=== PATIENT | female | born 1990 | race Caucasian/White ===

== ENCOUNTER 2018-05-11 12:22 | Outpatient (CLI) | payer OTHER ==
[2018-05-11 14:12] LABS: APPEARANCE,URINE CLEAR; BILIRUBIN,URINE NEGATIVE (NEGATIVE); COLOR,URINE COLORLESS; GLUCOSE, URINE NEGATIVE (NEGATIVE); KETONES,URINE NEGATIVE (NEGATIVE); LEUKOCYTE ESTERASE,URINE NEGATIVE (NEGATIVE); NITRITE,URINE NEGATIVE (NEGATIVE); PROTEIN,URINE NEGATIVE (NEGATIVE); URINE SPECIFIC GRAVITY 1.003; UROBILINOGEN,URINE NEGATIVE mg/dL (<2.0)
[2018-05-11 14:27] LABS: URINE AMPHETAMINES SCREEN NEGATIVE; URINE BARBITURATES SCREEN NEGATIVE; URINE BENZODIAZEPINES SCREEN NEGATIVE; URINE COCAINE SCREEN NEGATIVE; URINE MARIJUANA (THC) SCREEN NEGATIVE; URINE METHADONE SCREEN NEGATIVE; URINE PHENCYCLIDINE SCREEN NEGATIVE
== END 2018-05-11 14:24 | disposition home or self-care (01) ==
LOC: LC 12:22
PROVIDERS: ATTEND Obstetrics & Gynecology Gynecology
PROC: 4A1HXCZ Monitoring of Products of Conception, Cardiac Rate, External Approach (ICD-10-PCS; principal; 2018-05-11)
DX: O99.713 Diseases of the skin and subcutaneous tissue complicating pregnancy, third trimester (principal); L50.9 Urticaria, unspecified; Z3A.31 31 weeks gestation of pregnancy
CPT/HCPCS: 80307; 81001

== ENCOUNTER 2018-06-26 12:26 | Outpatient (CLI) | payer OTHER ==
--- NOTE | 2018-06-26 13:39 | Non Stress Test Report ---
Non Stress Test Datetime Report Generated by CPN: 06/26/2018 13:38 DEMOGRAPHIC EGA NST: 38.3 INDICATION Indication for Study: Ordered by Provider MONITORING Monitor Explained: Monitor Explained; Test Explained; Patient Verbalized Understanding Time on Monitor: 06/26/2018 12:44 Time off Monitor: 06/26/2018 13:33 NST Duration: 49 NST INTERVENTIONS NST Interventions: PO Hydration Physician Notified NST: POsiel Alfonso, CNM reveiwed strip BABY A: [id number] BABY A Movement : Present Contraction Frequency : irregular FHR Baseline : 150 Accelerations : 15X15 Decelerations : None Variability : Moderate 6-25bpm NST Review: Meets Criteria for Reactive NST NST Review and Verified By : LONG Stephenson Results: Reactive NST REPORT Report Trigger: Send Report
== END 2018-06-26 13:37 | disposition home or self-care (01) ==
LOC: LC 12:26
PROVIDERS: ATTEND Student in an Organized Health Care Education/Training Program
PROC: 4A1HXCZ Monitoring of Products of Conception, Cardiac Rate, External Approach (ICD-10-PCS; principal; 2018-06-26)
DX: O47.1 False labor at or after 37 completed weeks of gestation (principal); Z3A.38 38 weeks gestation of pregnancy
CPT/HCPCS: 59025

== ENCOUNTER 2018-07-01 21:35 | Inpatient (IN) | payer OTHER ==
[2018-07-01 22:04] LABS: APPEARANCE,URINE CLEAR; BILIRUBIN,URINE NEGATIVE (NEGATIVE); COLOR,URINE STRAW; GLUCOSE, URINE NEGATIVE (NEGATIVE); KETONES,URINE NEGATIVE (NEGATIVE); LEUKOCYTE ESTERASE,URINE NEGATIVE (NEGATIVE); NITRITE,URINE NEGATIVE (NEGATIVE); PROTEIN,URINE NEGATIVE (NEGATIVE); UROBILINOGEN,URINE NEGATIVE mg/dL (<2.0)
[2018-07-01 22:28] LABS: URINE AMPHETAMINES SCREEN NEGATIVE; URINE BARBITURATES SCREEN NEGATIVE; URINE BENZODIAZEPINES SCREEN NEGATIVE; URINE COCAINE SCREEN NEGATIVE; URINE MARIJUANA (THC) SCREEN NEGATIVE; URINE METHADONE SCREEN NEGATIVE; URINE PHENCYCLIDINE SCREEN NEGATIVE
[2018-07-01] MEDS ORDERED: DINOPROSTONE 10 MG VAGINAL INSERT.SR PV PRN (22:58)
[2018-07-01] MEDS ORDERED: RINGERS SOLUTION,LACTATED 300 ML IV ONE (22:58)
[2018-07-01] MEDS ORDERED: RINGERS SOLUTION,LACTATED 1,000 ML IV PRN (22:58)
--- NOTE | 2018-07-01 23:21 | RADIOLOGY REPORT (SQ) ---
EXAM DESCRIPTION: US LIMITED COMPLETED DATE/TME: 07/01/2018 00:00 CLINICAL HISTORY: 27 years, Female, presentation for unstable lie. LMP 09/30/2017. COMPARISON: 03/24/2018 TECHNIQUE: Limited third trimester obstetrical ultrasound for specified parameters. FINDINGS/IMPRESSION: Single live intrauterine . heart rate 141 bpm. position: Vertex 2010 [facility] [employer] [facility] [employer]- All Rights Reserved
[2018-07-01] MEDS ORDERED: MISOPROSTOL 0.2 MG TABLET ONE (23:23)
[2018-07-01] MEDS ORDERED: LIDOCAINE 1% INJ-PF (10 MG/ML) 30 ML SDV ONE (23:23)
[2018-07-01] MEDS ORDERED: OXYTOCIN/NORMAL SALINE 20 UNIT/1,000 ML RTUINJ ONE (23:23)
[2018-07-01] MEDS ORDERED: OXYTOCIN 10 UNIT/ML VIAL ONE (23:23)
[2018-07-01] MEDS ORDERED: DINOPROSTONE 10 MG VAGINAL INSERT.SR ONE (23:23)
[2018-07-01 23:49] LABS: ABSOLUTE EOSINOPHILS # (AUTO) 0.2 10^3/uL (0.0-0.6); ABSOLUTE LYMPHOCYTES (AUTO) 1.4 10^3/uL (0.5-4.7); ABSOLUTE MONOCYTES (AUTO) 0.4 10^3/uL (0.1-1.4); ABSOLUTE NEUT (AUTO) 4.8 10^3/uL (1.7-8.2); BASOPHILS % (AUTO) 0.4 % (0-2); EOSINOPHILS % (AUTO) 2.3 % (0-6); HEMATOCRIT 36.5 % (36.0-47.0); HEMOGLOBIN 12.8 g/dL (12.0-15.5); LYMPHOCYTES % (AUTO) 21.2 % (13-45); MEAN CORPUSCULAR HEMOGLOBIN 32.5 pg (27.0-33.4); MEAN CORPUSCULAR VOLUME 93 fl (80-97); MONOCYTES % (AUTO) 5.3 % (3-13); PLATELET COUNT 229 10^3/uL (150-450); RED BLOOD COUNT 3.94 10^6/uL (3.72-5.28); RED CELL DISTRIBUTION WIDTH 13.4 % (11.5-14.0); SEGMENTED NEUTROPHILS % (AUTO) 70.8 % (42-78); TOTAL CELLS COUNTED % (AUTO) 100 %; WHITE BLOOD COUNT 6.7 10^3/uL (4.0-10.5)
[2018-07-01 23:56] LABS: ALANINE AMINOTRANSFERASE 28 U/L (9-52); ALBUMIN 3.2 g/dL (3.5-5.0); ALKALINE PHOSPHATASE 157 U/L (38-126); ANION GAP 7 (5-19); ASPARTATE AMINO TRANSFERASE 29 U/L (14-36); BILIRUBIN,DIRECT 0.2 mg/dL (0.0-0.4); BILIRUBIN,TOTAL 0.3 mg/dL (0.2-1.3); BLOOD UREA NITROGEN 9 mg/dL (7-20); CALCIUM 9.4 mg/dL (8.4-10.2); CARBON DIOXIDE 23 mmol/L (22-30); CHLORIDE 107 mmol/L (98-107); GLUCOSE 94 mg/dL (75-110); POTASSIUM 4.1 mmol/L (3.6-5.0); SODIUM 137.1 mmol/L (137-145)
--- NOTE | 2018-07-02 05:26 | Admission Physical ---
Datetime Report Generated by CPN: 07/02/2018 05:26 CURRENT ADMISSION Chief Complaint: Scheduled Induction of Labor Indication for Induction: Other Indication for Induction- Other: Elective Admit Impression : Term, Intrauterine ; Induction of Labor Admit Plan: Admit to Unit; Initiate Labor Induction Protocol ALLERGIES Medication Allergies: Yes Medication Allergies: Sulfa (Sulfonamide Antibiotics)/Urticaria (07/01/2018) Latex: No Latex Allergies Food Allergies: N/A Environmental Allergies: Seasonal OBSTETRICAL HISTORY EDC: 07/07/2018 00:00 : 5 Para: 2 Term: 2 : 0 SAB: 1 IAB: 1 Ectopic: 0 Livin Cesareans: 0 VBACs: 0 Multiple Births: 0 Gestational Diabetes: No Rh Sensitization: No Incompetent Cervix: No DAVID: No Infertility: No ART Treatment: No Uterine Anomaly: No IUGR: No Hx Previous C/S: No Macrosomia: No Hx Loss/Stillborn: No PIH: No Hx : No Placenta Previa/Abruption: No Depression/PP Depression: No PTL/PROM: No Post Hemorrhage: No Current Procedures: Ultrasound; NST Obstetrical History Comments: G1- early miscarriage (2011) G2- early miscarriage/chemical (2011) G3 - PIH, of baby girl at 37.5 G4 - HTN, of baby girl at 41.4 G5- current, subchorionic hemmorrhage at 6 weeks. SEE RECORDS Alcohol: No Marijuana : No Cocaine: No Other Illicit Drugs: No Cigarettes: Never Smoker. [id number] MEDICAL HISTORY Diabetes: No Blood Transfusion: No Pulmonary Disease (Asthma, TB): Yes Breast Disease: No Hypertension: No Bundle Breaker Surgery: No Heart Disease: Yes Hosp/Surgery: Yes Autoimmune Disorder: No Anesthetic Complications: No Kidney Disease: No Abnormal Pap Smear: No Neuro/Epilepsy: No Psychiatric Disorders: No Other Medical Diseases: No Hepatitis/Liver Disease: No Significant Family History: No Varicosities/Phlebitis: No Trauma/Violence : No Thyroid Dysfunction: No Medical History Comments: Cogenital heart defect - bicuspid aortic valve, childbirth (2012 _ 2014), tonsilectomy (2005), breast augmentation (2010), wisdom teeth removal (2009), asthma (allergy induced) INFECTIOUS HISTORY Gonorrhea: No Genital Herpes: No Chlamydia: No Tuberculosis: No Syphilis: No Hepatitis: No HIV/AIDS Exposure: No Rash or Viral Illness: No HPV: No PHYSICAL EXAM General: Normal HEENT: Normal Neurologic: Normal Thyroid: Normal Heart: Normal Lungs: Normal Breast: Deferred Back: Normal Abdomen: Normal Genitourinary Exam: Normal Extremities: Normal DTRs: Normal Pelvic Type: Adequate Vital Signs: Reviewed VAGINAL EXAM Dilatation: 2 Effacement: 50 Station: -3 MEMBRANES Pooling: Negative Membranes: Intact FETUS A EGA: 39.2 Monitoring: External US FHR- Baseline: 120 Variability: Moderate 6-25bpm Decelerations: None FHR Category: Category I Presentation: Vertex PLANS FOR LABOR AND DELIVERY Labor and Delivery: None Pain Management: Natural; Epidural Feeding Preference: Breast Benefit of Breast Feed Discussed: Yes Circumcision: Yes INFORMED CONSENT Signature: with User ID: [email or web address]
[2018-07-02] MEDS ORDERED: OXYTOCIN/NORMAL SALINE 20 UNIT/1,000 ML RTUINJ IV PRN ×2 (11:05→17:27)
--- NOTE | 2018-07-02 11:05 | L&D Progress Notes ---
PROGRESS NOTES Datetime Report Generated by CPN: 07/02/2018 11:05 PROGRESS NOTE Impression Other: IUP @ [id number] Procedures: Sterile Vag Exam Plan: Continue Present Management Informed Consent Obtained: Vaginal Delivery; Induction of Labor; Risks, Benefits and Alternatives Discussed Vital Signs : Reviewed Vital Signs Comments: mild range(several elevated diastolic readings since admission) Comment: S: pt. breathing and crying with contractions, plans on epidural for pain at some point, denies concerns at this time O: VSS (with some diastolic elevations), cervix as stated, cervidil in place A: IUP @ 39w2d- IOL for unstable lie and GHTN, stable, progressing P: continue IOL, cervidil removed, will start pitocin after the 1hr break. Pt. and asked questions and verbalized understanding. Epidural prn VAGINAL EXAM Dilatation: 4 Dilatation: 2 Effacement: 80 Effacement: 50 Station: -2 Station: -3 Contractions: 2-3 MEMBRANES Pooling: Negative Membranes: Intact Membranes: Intact Amniotic Fluid Color: Clear FETUS A FHR - Baseline: 140 Monitoring: External US Variability: Moderate 6-25bpm Accelerations: 15X15 Decelerations: Variable : 39.0 Presentation: Vertex SIGNATURE SIGNATURE: [id number];[id number];13,[id number] SIGNATURE: [id number];[id number] SIGNATURE: [id number] Assignment: Halima Horta MD Signature: with User ID: Lorin : with User ID: Lorin
[2018-07-02] MEDS ORDERED: FENTANYL/BUPIVACAINE/NS/PF 300 MCG/150 ML RTUINJ EPI ONE (11:22)
[2018-07-02] MEDS ORDERED: EPHEDRINE SULFATE INJ 50 MG/1 ML AMPULE ONE (11:22)
[2018-07-02] MEDS ORDERED: LIDOCAINE 0.5% INJ-PF (5 MG/ML) 50 ML SDV ONE (11:23)
[2018-07-02] MEDS ORDERED: BUPIVACAINE HCL 0.5 % INJ/PF 30 ML SDV ONE (12:17)
--- NOTE | 2018-07-02 14:44 | L&D Progress Notes ---
PROGRESS NOTES Datetime Report Generated by CPN: 07/02/2018 14:43 PROGRESS NOTE Impression: Rupture of Membranes Procedures: Artificial ROM; Sterile Vag Exam Plan: Continue Present Management Informed Consent Obtained: Vaginal Delivery; Induction of Labor; Risks, Benefits and Alternatives Discussed Vital Signs : Reviewed Vital Signs Comments: continues to have occasional elevation c/w GHTN Comment: S: Pt. reports complete relief of pain with epidural placement just feeling a lot of perineal and back pressure now O: mild elevations in BP, cervix as stated A: IUP @ 39w2d- IOL secondary to unstable lie, GHTN-stable, progressing P: cervix continued changing without need for pitocin, AROM-clear fluid, continue present management, pitocin prn, peanut ball for rotation (baby in OT position at this time) VAGINAL EXAM Dilatation: 6 Effacement: 100 Station: -1 Contractions: 2-3 MEMBRANES Membranes: Ruptured Amniotic Fluid Color: Clear FETUS A Monitoring: External US FHR Category: Category I FETUS C SIGNATURE: [id number];[id number];10,[id number] Assignment: Halima Horta MD Signature: with User ID: Lorin : with User ID: [email or web address]
[2018-07-02] MEDS ORDERED: MEASLES,MUMPS&RUBELLA VACC/PF 0.5 ML VIAL SUBCUT PRN (17:27)
[2018-07-02] MEDS ORDERED: BENZOCAINE/MENTHOL AEROSOL SPRAY 56 ML TOP PRN (17:27)
[2018-07-02] MEDS ORDERED: PROMETHAZINE HCL 25 MG SUPP.RECT PR PRN (17:27)
[2018-07-02] MEDS ORDERED: PROMETHAZINE HCL 25 MG TABLET PO PRN (17:27)
[2018-07-02] MEDS ORDERED: PROMETHAZINE HCL INJ 25 MG/1 ML VIAL IV PRN (17:27)
[2018-07-02] MEDS ORDERED: NA PHOS,M-B/NA PHOS,DI-BA (ADULT) 133 ML ENEMA PR PRN (17:27)
[2018-07-02] MEDS ORDERED: ACETAMINOPHEN WITH CODEINE #3 TABLET PO PRN ×2 (17:27)
[2018-07-02] MEDS ORDERED: GLYCERIN/WITCH HAZEL LEAF 1 EACH MED..PAD TP PRN (17:27)
[2018-07-02] MEDS ORDERED: PSEUDOEPHEDRINE HCL 30 MG TABLET PO PRN (17:27)
[2018-07-02] MEDS ORDERED: DIBUCAINE 1% OINTMENT 28 GM TP PRN (17:27)
[2018-07-02] MEDS ORDERED: DIPH/PERTUSS(ACELL)/TETANUS VAC/PF 0.5 ML SYR (>=10YO) IM PRN (17:27)
[2018-07-02] MEDS ORDERED: ACETAMINOPHEN 325 MG TABLET PO PRN (17:27)
[2018-07-02] MEDS ORDERED: MAGNESIUM HYDROXIDE SUSP 30 ML UDCUP PO PRN (17:27)
[2018-07-02] MEDS ORDERED: DIPHENHYDRAMINE HCL 25 MG CAPSULE PO PRN (17:27)
--- NOTE | 2018-07-02 19:32 | Delivery Summary ---
Del Sum A-C Datetime Report Generated by CPN: 07/02/2018 19:31 DELIVERY PERSONNEL DELIVERY PERSONNEL: [id number] Delivery Doctor:: Le Wilks CNM Labor and Delivery Nurse:: Ashley Braga RNatmospheric physicist Nurse:: Amanda Canada RN Timber Bucker/RADIO FREQUENCY TECHNICIAN: Cortney Hoff, RADIO FREQUENCY TECHNICIAN II MATERNAL INFORMATION Delivery Anesthesia: Epidural Medications After Delivery: Pitocin Drip 20 Units/1000ml NSS Maternal Complications: None Provider Comments: pt progressed to c/c/+2 with strong urge to push and quickly delivered a viable baby boy with strong respiratory effort and cry with tactile stimulation. Baby placed on maternal abdomen skin to skin. Cord allowed to stop pulsating then clamped x2 and cut by FOB. Placenta delivered spontaneously intact (3vc noted, cord blood obtained). Fundus firm @ u, minimal bleeding, abrasion as stated. Mother and baby remain skin to skin, stable and bonding at this time. LABOR SUMMARY EDC: 07/07/2018 00:00 No. Babies in Womb: 1 Attempted: No Labor Anesthesia: Epidural LABOR INFORMATION Reason for Induction: Gestational Hypertension Onset of Labor: 07/02/2018 10:23 Complete Dilatation: 07/02/2018 16:40 Cervical Ripening Agents: Cervidil Oxytocin: N/A Group B Beta Strep: Negative Antibiotics # of Doses: 0 Steroids Given: None Reason Steroids Not Administered: Not Applicable MEMBRANES Membranes Rupture Method: Artificial Rupture of Membranes: 07/02/2018 14:31 Length of Rupture (hr): 2.38 Amniotic Fluid Color: Clear Amniotic Fluid Amount: Small Amniotic Fluid Odor: Normal STAGES OF LABOR Stage 1 hr: 6 Stage 1 min: 17 Stage 2 hr: 0 Stage 2 min: 14 Stage 3 hr: 0 Stage 3 min: 5 Total Time in Labor hr: 6 Total Time in Labor min: 36 VAGINAL DELIVERY Episiotomy: None Laceration #1: None Laceration Extension #1: N/A Other Laceration: small left labial abrasion-hemostatic Laceration Repair: Not Applicable Laceration Repair Note: n/a Sponge Count Correct: Yes Sharps Count Correct: N/A CSECTION DELIVERY Primary Indication: N/A Secondary Indication: N/A CSection Incidence: N/A Labor: N/A Elective: N/A CSection Incision: N/A BABY A INFORMATION Infant Delivery Date/Time: 07/02/2018 16:54 Method of Delivery: Vaginal Born in Route : No : N/A Forceps: N/A Vacuum Extraction: N/A Shoulder Dystocia : No PRESENTATION/POSITION BABY A Presentation: Cephalic Cephalic Presentation: Vertex Vertex Position: Left Occipital Anterior Breech Presentation: N/A PLACENTA INFORMATION BABY A Placenta Delivery Time : 07/02/2018 16:59 Placenta Method of Delivery: Spontaneous Placenta Status: Delivered SCORES BABY A Heart Rate 1 min: >100 bpm Resp Effort 1 min: Slow, Irregular Reflex Irritability 1 min: Cough or Sneeze or Pulls Away Muscle Tone 1 min: Active Motion Color 1 min: Body [place], Extremities Blue Resuscitation Effort 1 min: N/A SCORE 1 MIN: 8 Heart Rate 5 min: >100 bpm Resp Effort 5 min: Good Cry Reflex Irritability 5 min: Cough or Sneeze or Pulls Away Muscle Tone 5 min: Active Motion Color 5 min: Body [place], Extremities Blue Resuscitation Effort 5 min: N/A SCORE 5 MIN: 9 INFORMATION BABY A Gestational Age at Delivery: 39.2 Gestational Status: Full Term- 39- 40.6 Weeks Infant Outcome : Liveborn Condition : Stable Sex: Male WEIGHT/LENGTH BABY A Infant Birthweight (gm): 3180 Infant Weight (lb): 7 Infant Weight (oz): 0 Infant Length (in): 20.50 Infant Length (cm): 52.07 CORD INFORMATION BABY A No. Cord Vessels: 3 Nuchal Cord : N/A Cord Blood Taken: Yes-For Eval (Mom's Blood Type - or O+) Suction: None ASSESSMENT BABY A Infant Complications: None Physical Findings at Delivery: Within Normal Limits Respirations: Appears Normal Skin to Skin: Yes Clinical Specialist/ALS Called : No Infant Care By: GunnerOsiel Canada, RN Transferred To: Remains with Mother BABY B INFORMATION : N/A SIGNATURES Assignment: Halima Horta MD Signature: with User ID: [email or web address] : with User ID: [email or web address]
[2018-07-02] MEDS: FAMOTIDINE 20 MG TABLET PO SCH (21:18)
[2018-07-02] MEDS: IBUPROFEN 800 MG TABLET PO SCH (21:19)
[2018-07-03] MEDS: IBUPROFEN 800 MG TABLET PO SCH ×3 (05:44→21:19)
[2018-07-03 08:19] LABS: HEMATOCRIT 31.8 % (36.0-47.0); HEMOGLOBIN 11.3 g/dL (12.0-15.5); MEAN CORPUSCULAR HGB CONC 35.6 g/dL (32.0-36.0); MEAN CORPUSCULAR VOLUME 93 fl (80-97); PLATELET COUNT 167 10^3/uL (150-450); RED BLOOD COUNT 3.43 10^6/uL (3.72-5.28); RED CELL DISTRIBUTION WIDTH 13.1 % (11.5-14.0); WHITE BLOOD COUNT 9.5 10^3/uL (4.0-10.5)
[2018-07-03] MEDS: PRENATAL VITAMIN W DHA CAPSULE PO SCH (09:32)
[2018-07-03] MEDS: SENNOSIDES/DOCUSATE 8.6-50 MG 1 EACH TABLET PO SCH (09:32)
[2018-07-03] MEDS: DOCUSATE SODIUM 100 MG CAPSULE PO SCH ×3 (09:32→18:06)
[2018-07-03] MEDS: FAMOTIDINE 20 MG TABLET PO SCH ×2 (09:33→21:19)
[2018-07-03] MEDS: FERROUS SULFATE 325 MG TABLET PO SCH ×2 (09:33→18:06)
--- NOTE | 2018-07-03 09:44 | PDOC PROGRESS REPORT ---
Subjective-OB Progress Note for:: 07/03/18 Subjective: Doing well, no c/o, breast feeding Physical Exam (OB) Vital Signs: Temp Pulse Resp BP Pulse Ox 98.3 F 69 14 127/86 H 100 07/03/18 08:22 07/03/18 08:22 07/03/18 08:22 07/03/18 08:22 07/03/18 08:22 Intake & Output 07/02/18 07/03/18 07/04/18 06:59 06:59 06:59 Intake Total 200 Balance 200 Weight 74.6 kg - PIH/Pre-Eclampsia Clonus: Negative Headache: Absent Epigastric Pain: No Visual Changes: No - Lochia Lochia Amount: Scant < 10 ml Lochia Color: Rubra/Red - Abdomen Description: Soft, Round Hernia Present: No Fundal Description: Firm, Midline Fundal Height: u/u - u/2 Objective-Diagnostic Laboratory: 07/03/18 07:53 07/01/18 23:32 07/03/18 07:53 WBC 9.5 RBC 3.43 L Hgb 11.3 L Hct 31.8 L MCV 93 MCH 33.0 MCHC 35.6 RDW 13.1 Plt Count 167 Assessment and Plan(PN) - Assessment and Plan (1) Gestational hypertension affecting fifth Is this a current diagnosis for this admission?: Yes (2) Unstable lie of fetus, delivered, current hospitalization Is this a current diagnosis for this admission?: Yes - Time Spent with Patient Time with patient: Less than 15 minutes Medications reviewed and adjusted accordingly: Yes - Disposition Anticipated Discharge: Home Within: within 48 hours
[2018-07-04] MEDS: IBUPROFEN 800 MG TABLET PO SCH ×2 (05:14→13:45)
[2018-07-04 09:48] VITALS: BP 122/84
[2018-07-04] MEDS: SENNOSIDES/DOCUSATE 8.6-50 MG 1 EACH TABLET PO SCH (09:50)
[2018-07-04] MEDS: DOCUSATE SODIUM 100 MG CAPSULE PO SCH (09:50)
[2018-07-04] MEDS: FERROUS SULFATE 325 MG TABLET PO SCH (09:50)
[2018-07-04] MEDS: PRENATAL VITAMIN W DHA CAPSULE PO SCH (09:50)
[2018-07-04] MEDS: FAMOTIDINE 20 MG TABLET PO SCH (09:50)
--- NOTE | 2018-07-04 10:12 | PDOC DISCHARGE SUMMARY ---
Final Diagnosis Discharge Date: 07/04/18 - Final Diagnosis (1) Delivery normal Is this a current diagnosis for this admission?: Yes (2) Gestational hypertension affecting fifth Is this a current diagnosis for this admission?: Yes (3) Unstable lie of fetus, delivered, current hospitalization Is this a current diagnosis for this admission?: Yes Discharge Data - Discharge Medication Home Medications: Pnv W-O Ca No5/Fe Fumarate/FA [-U Capsule] 1 cap PO DAILY 07/24/13 Reason(s) for Admission: Induction of Labor, Obstetric Complications Procedures: NST Intrapartum Procedure(s): Spontaneous Vaginal Delivery Complication(s): Laceration-Labial Laceration-Degree: 1st - Diagnosis Test Laboratory: Temp Pulse Resp BP Pulse Ox 98.4 F 73 18 122/84 100 07/04/18 08:36 07/04/18 08:36 07/04/18 08:36 07/04/18 08:36 07/04/18 08:36 07/01/18 07/01/18 07/03/18 21:45 23:32 07:53 RBC 3.94 3.43 L Hgb 12.8 11.3 L Hct 36.5 31.8 L Urine Opiates Screen NEGATIVE - Discharge information/Instructions Discharge Activity: Balance Activity w/Rest, Pelvic Rest Discharge Diet: Regular Disposition: HOME, SELF-CARE Follow up with: [facility] in: 3, Weeks
== END 2018-07-04 14:29 | disposition home or self-care (01) | DRG 807 ==
LOC: LC 21:35 → LR 22:54 → 2S 07-02 20:11
PROVIDERS: ADMIT Student in an Organized Health Care Education/Training Program; ATTEND Student in an Organized Health Care Education/Training Program
PROC: 10E0XZZ Delivery of Products of Conception, External Approach (ICD-10-PCS; principal; 2018-07-02)
DX: O13.4 Gestational [pregnancy-induced] hypertension without significant proteinuria, complicating childbirth (principal); Z37.0 Single live birth; O70.0 First degree perineal laceration during delivery; Z3A.39 39 weeks gestation of pregnancy
CPT/HCPCS: 36415; 76815; 80053; 80307; 81005; 85025; 85027; 86592; 86850; 86900; 86901; 94760; J2590; J3010; J3490

== ENCOUNTER 2018-07-08 18:17 | Emergency (ER) | payer OTHER ==
[2018-07-08] MEDS ORDERED: LABETALOL HCL 200 MG TABLET PO ONE (19:12)
--- NOTE | 2018-07-08 19:16 | ER Document Report ---
ED Medical Screen (RME) - General Chief Complaint: Blood Pressure Problem Stated Complaint: BLOOD PRESSURE PROBLEM Time Seen by Provider: 07/08/18 19:02 Mode of Arrival: Ambulatory Information source: Patient TRAVEL OUTSIDE OF THE [place] IN LAST 30 DAYS: No - HPI Patient complains to provider of: hypertension Onset: Other - This is a 27-year-old female that presents for evaluation of elevated blood pressure 4 days . She notes that during her previous 2 pregnancies she did require treatment for hypertension which resolved after 1 week in 2 weeks of treatment respectively. She notes that today she was beginning to have low level headaches which time she checked her blood pressure is greater than 160 systolic and 105 diastolic at which time she contacted the pump room operator who suggested she come to the emergency room. She denies any focal numbness or weakness, any lightheadedness or dizziness, chest pain shortness of breath abdominal pain diarrhea constipation or dysuria she does not have any fevers or chills does not have any history of hypertension outside of . - Related Data Allergies/Adverse Reactions: Sulfa (Sulfonamide Antibiotics) Allergy (Verified 07/01/18 21:44) Urticaria Past Medical History - General Information source: Patient - Social History Chew tobacco use (# tins/day): No Drug Abuse: None Renal/ Medical History: Denies: Hx Peritoneal Dialysis Past Surgical History: Reports: Hx Tonsillectomy - Immunizations Hx Diphtheria, Pertussis, Tetanus Vaccination: Yes - 07/27/13 Review of Systems - Review of Systems -: Yes All other systems reviewed and negative Physical Exam - Vital signs Vitals: Temp Pulse Resp BP Pulse Ox 99.0 F 77 16 169/109 H 100 07/08/18 18:35 07/08/18 18:35 07/08/18 18:35 07/08/18 18:35 07/08/18 18:35 - General General appearance: Appears well In distress: None - HEENT Head: Normocephalic Eyes: Normal Conjunctiva: Normal Cornea: Normal Extraocular movements intact: Yes - Respiratory Respiratory status: No respiratory distress Chest status: Nontender Breath sounds: Normal Chest palpation: Normal - Cardiovascular Rhythm: Regular Heart sounds: Normal auscultation Murmur: No - Abdominal Inspection: Normal Distension: No distension Tenderness: Nontender - Back Back: Normal - Extremities General upper extremity: Normal inspection, Nontender, Normal ROM, Normal strength General lower extremity: Normal inspection, Nontender, Normal ROM, Normal strength - Neurological Neuro grossly intact: Yes Cognition: Normal Orientation: AAOx4 Lesa Coma Scale Eye Opening: Spontaneous [place] Coma Scale Verbal: Oriented [place]a Coma Scale Motor: Obeys Commands [place] Coma Scale Total: 15 Speech: Normal Cranial nerves: Normal Motor strength normal: LUE, RUE, LLE, RLE - Psychological Associated symptoms: Normal affect Course - Re-evaluation Re-evalutation: 07/08/18 19:15 Well-appearing 27-year-old female presents for evaluation of hypertension. She is never had eclampsia in the past, did have a low level headache however today associated with her elevated blood pressure. She does not have any focal numbness or weakness. We will plan for obtaining urinalysis for possible proteinuria, will obtain LFTs as well as a CBC for platelets. We will plan for the patient undergo further evaluation. We will initiate treatment of her hypertension with labetalol. I performed a rapid screening evaluation of this patient at this time, she does not have an immediate life threat however will require further disposition determination and evaluation via secondary provider's. - Vital Signs Vital signs: Temp Pulse Resp BP Pulse Ox 99.0 F 77 16 169/109 H 100 07/08/18 18:35 07/08/18 18:35 07/08/18 18:35 07/08/18 18:35 07/08/18 18:35 Doctor's Discharge - Discharge Referrals: LEIGHTON NGUYEN MD [Primary Care Provider] - Follow up as needed
[2018-07-08 19:29] LABS: APPEARANCE,URINE CLEAR; BILIRUBIN,URINE NEGATIVE (NEGATIVE); COLOR,URINE STRAW; GLUCOSE, URINE NEGATIVE (NEGATIVE); KETONES,URINE NEGATIVE (NEGATIVE); LEUKOCYTE ESTERASE,URINE TRACE (NEGATIVE); NITRITE,URINE NEGATIVE (NEGATIVE); PROTEIN,URINE NEGATIVE (NEGATIVE); UROBILINOGEN,URINE NEGATIVE mg/dL (<2.0)
[2018-07-08 19:36] LABS: AMORPHOUS SEDIMENT,URINE TRACE /HPF
[2018-07-08 19:38] LABS: URINE SPECIFIC GRAVITY 1.014
[2018-07-08 19:50] LABS: ABSOLUTE EOSINOPHILS # (AUTO) 0.2 10^3/uL (0.0-0.6); ABSOLUTE LYMPHOCYTES (AUTO) 1.5 10^3/uL (0.5-4.7); ABSOLUTE MONOCYTES (AUTO) 0.5 10^3/uL (0.1-1.4); ABSOLUTE NEUT (AUTO) 6.1 10^3/uL (1.7-8.2); BASOPHILS % (AUTO) 0.5 % (0-2); EOSINOPHILS % (AUTO) 2.8 % (0-6); HEMATOCRIT 40.4 % (36.0-47.0); LYMPHOCYTES % (AUTO) 17.6 % (13-45); MEAN CORPUSCULAR HEMOGLOBIN 32.3 pg (27.0-33.4); MEAN CORPUSCULAR HGB CONC 34.7 g/dL (32.0-36.0); MEAN CORPUSCULAR VOLUME 93 fl (80-97); MONOCYTES % (AUTO) 6.1 % (3-13); PLATELET COUNT 273 10^3/uL (150-450); RED BLOOD COUNT 4.34 10^6/uL (3.72-5.28); RED CELL DISTRIBUTION WIDTH 13.6 % (11.5-14.0); TOTAL CELLS COUNTED % (AUTO) 100 %; WHITE BLOOD COUNT 8.4 10^3/uL (4.0-10.5)
[2018-07-08] MEDS ORDERED: HYDRALAZINE HCL INJ/PF 20 MG/1 ML SDV IV ONE (20:06)
[2018-07-08 20:07] LABS: ALANINE AMINOTRANSFERASE 36 U/L (9-52); ALBUMIN 3.6 g/dL (3.5-5.0); ALKALINE PHOSPHATASE 110 U/L (38-126); ANION GAP 8 (5-19); ASPARTATE AMINO TRANSFERASE 30 U/L (14-36); BILIRUBIN,DIRECT 0.2 mg/dL (0.0-0.4); BILIRUBIN,TOTAL 0.3 mg/dL (0.2-1.3); BLOOD UREA NITROGEN 18 mg/dL (7-20); CALCIUM 9.4 mg/dL (8.4-10.2); CARBON DIOXIDE 25 mmol/L (22-30); CHLORIDE 106 mmol/L (98-107); GLUCOSE 91 mg/dL (75-110); POTASSIUM 3.9 mmol/L (3.6-5.0); SODIUM 138.7 mmol/L (137-145); TOTAL PROTEIN 6.5 g/dL (6.3-8.2)
--- NOTE | 2018-07-08 20:09 | ER Document Report ---
ED General - General Chief Complaint: Blood Pressure Problem Stated Complaint: BLOOD PRESSURE PROBLEM Time Seen by Provider: 07/08/18 19:02 Mode of Arrival: Ambulatory Information source: [facility] Records Notes: 27-year-old female day 6 presents with concern for elevated blood pressure that she noticed 3 days prior to arrival. Patient became more concerned today when she developed a headache. She states that she had an uneventful and was induced without complications. She does report that she has had 2 previous pregnancies with hypertension which required treatment. She is currently headache free. She states she took Tylenol which helped resolve the headache. She denies any chest pain, shortness of breath, lower extremity swelling. She was in by Dr. Foss yesterday and advised to return in 72 hours for repeat evaluation. TRAVEL OUTSIDE OF THE [place] IN LAST 30 DAYS: No - HPI Onset: Other Onset/Duration: Gradual, Gone Quality of pain: No pain Severity: None Associated symptoms: Headache - Resolved. denies: Chest pain, Nausea, Vomiting , Shortness of breath Exacerbated by: Denies Relieved by: Denies Similar symptoms previously: Yes Recently seen / treated by doctor: Yes - Dr. Foss 1 day prior to arrival - Related Data Allergies/Adverse Reactions: Sulfa (Sulfonamide Antibiotics) Allergy (Verified 07/01/18 21:44) Urticaria Past Medical History - General Information source: Patient - Social History Smoking Status: Never Smoker Chew tobacco use (# tins/day): No Drug Abuse: None Lives with: Family Family History: Reviewed & Not Pertinent Patient has suicidal ideation: No Patient has homicidal ideation: No Renal/ Medical History: Denies: Hx Peritoneal Dialysis Past Surgical History: Reports: Hx Tonsillectomy - Immunizations Hx Diphtheria, Pertussis, Tetanus Vaccination: Yes - 07/27/13 Review of Systems - Review of Systems Notes: REVIEW OF SYSTEMS: CONSTITUTIONAL : Denies fever, chills, or sweats. Denies recent illness. Denies weight loss, recent hospitalizations. EENT: Denies visual changes, eye pain. Denies sore throat, oral lesions, difficulty swallowing. CARDIOVASCULAR: Denies chest pain. Denies palpitations. Denies lower extremity edema. RESPIRATORY: Denies cough. Denies shortness of breath, wheezing. GASTROINTESTINAL: Denies abdominal pain or distention. Denies nausea, vomiting , or diarrhea. Denies blood in vomitus, stools, or per rectum. Denies black, tarry stools. Denies constipation. GENITOURINARY: Denies difficulty urinating, painful urination, frequency, blood in urine, or vaginal discharge. MUSCULOSKELETAL: Denies back or neck pain or stiffness. Denies joint pain or swelling. SKIN: Denies rash, lesions or sores. HEMATOLOGIC : Denies easy bruising or bleeding. LYMPHATIC: Denies swollen glands. NEUROLOGICAL: Denies confusion or altered mental status. Denies loss of consciousness. Denies dizziness or lightheadedness. Denies headache. Denies weakness or paralysis. Denies problems difficulty with ambulation, slurred speech. Denies sensory loss, numbness, or tingling. Denies seizures. PSYCHIATRIC: Denies anxiety or stress. Denies depression, suicidal ideation, or homicidal ideation. Denies visual or auditory hallucinations. Physical Exam - Vital signs Vitals: Temp Pulse Resp BP Pulse Ox 99.0 F 77 16 169/109 H 100 07/08/18 18:35 07/08/18 18:35 07/08/18 18:35 07/08/18 18:35 07/08/18 18:35 Interpretation: Hypertensive - Notes Notes: PHYSICAL EXAMINATION: GENERAL: Well-appearing, well-nourished and in no acute distress. HEAD: Atraumatic, normocephalic. EYES: Pupils equal round and reactive to light, extraocular movements intact, conjunctiva are normal. ENT: Nares patent, oropharynx clear without exudates. Moist mucous membranes. NECK: Normal range of motion, supple without lymphadenopathy LUNGS: Breath sounds clear to auscultation bilaterally and equal. No wheezes rales or rhonchi. HEART: Regular rate and rhythm without murmurs ABDOMEN: Soft, nontender, nondistended abdomen. No guarding, no rebound. No masses appreciated. Female : deferred Musculoskeletal: Normal range of motion, no pitting or edema. No cyanosis. NEUROLOGICAL: Cranial nerves grossly intact. Normal speech, normal gait. Normal sensory, motor exams PSYCH: Normal mood, normal affect. SKIN: Warm, Dry, normal turgor, no rashes or lesions noted. Course - Re-evaluation Re-evalutation: Laboratory 07/08/18 07/08/18 07/08/18 19:14 19:30 19:30 WBC 8.4 RBC 4.34 Hgb 14.0 Hct 40.4 MCV 93 MCH 32.3 MCHC 34.7 RDW 13.6 Plt Count 273 Seg Neutrophils % 73.0 Lymphocytes % 17.6 Monocytes % 6.1 Eosinophils % 2.8 Basophils % 0.5 Absolute Neutrophils 6.1 Absolute Lymphocytes 1.5 Absolute Monocytes 0.5 Absolute Eosinophils 0.2 Absolute Basophils 0.0 Sodium 138.7 Potassium 3.9 Chloride 106 Carbon Dioxide 25 Anion Gap 8 BUN 18 Creatinine 0.74 Est GFR ( Amer) > 60 Est GFR (Non-Af Amer) > 60 Glucose 91 Uric Acid Calcium 9.4 Total Bilirubin 0.3 Direct Bilirubin 0.2 Neonat Total Bilirubin Not Reportable Neonat Direct Bilirubin Not Reportable Neonat Indirect Bili Not Reportable AST 30 ALT 36 Alkaline Phosphatase 110 Lactate Dehydrogenase Total Protein 6.5 Albumin 3.6 Urine Color STRAW Urine Appearance CLEAR Urine pH 7.0 Ur Specific Sparks 1.014 Urine Protein NEGATIVE Urine Glucose (UA) NEGATIVE Urine Ketones NEGATIVE Urine Blood MODERATE H Urine Nitrite NEGATIVE Urine Bilirubin NEGATIVE Urine Urobilinogen NEGATIVE Ur Leukocyte Esterase TRACE H Urine WBC (Auto) 4 Urine RBC (Auto) 3 Squamous Epi Cells Auto <1 Amorphous Sediment Auto TRACE Urine Mucus (Auto) RARE Urine Ascorbic Acid NEGATIVE 07/08/18 19:30 WBC RBC Hgb Hct MCV MCH MCHC RDW Plt Count Seg Neutrophils % Lymphocytes % Monocytes % Eosinophils % Basophils % Absolute Neutrophils Absolute Lymphocytes Absolute Monocytes Absolute Eosinophils Absolute Basophils Sodium Potassium Chloride Carbon Dioxide Anion Gap BUN Creatinine Est GFR ( Amer) Est GFR (Non-Af Amer) Glucose Uric Acid 5.4 Calcium Total Bilirubin Direct Bilirubin Neonat Total Bilirubin Neonat Direct Bilirubin Neonat Indirect Bili AST ALT Alkaline Phosphatase Lactate Dehydrogenase 261 H Total Protein Albumin Urine Color Urine Appearance Urine pH Ur Specific Sparks Urine Protein Urine Glucose (UA) Urine Ketones Urine Blood Urine Nitrite Urine Bilirubin Urine Urobilinogen Ur Leukocyte Esterase Urine WBC (Auto) Urine RBC (Auto) Squamous Epi Cells Auto Amorphous Sediment Auto Urine Mucus (Auto) Urine Ascorbic Acid 27-year-old female day 6 presents with concern for elevated blood pressure. She states that after developing a headache she checked her blood pressure and it was markedly elevated. She does report previous history of hypertension. She denies any history of preeclampsia. She was seen by Dr. Foss yesterday and advised to follow-up in 72 hours. Patient became concerned when she developed a headache earlier today but states that it resolved after taking 2 tabs of Tylenol. Patient has a benign physical exam. CBC, CMP and urinalysis are within normal limits. 07/08/18 21:[address] Alberto FUENTES on-call who asked me to add a uric acid level and LDH which I did and was within normal limits. She also recommended IV hydralazine while in the department. Repeat blood pressure is 127/96. She also recommends 30 mg of Procardia XL and reevaluation in the office in 48 hours. Patient already has an appointment and was encouraged to keep it. Patient was evaluated and treated as appropriate for the patient's presenting symptoms and complaint, with consideration of any critical or life threatening conditions that may be associated with their obtained history and exam as noted above. All results were discussed with patient. Patient provided the opportunity to ask questions, and express concerns. Patient was educated on treatments based on their presumed diagnosis as noted above. At this time we will discharge the patient with return precautions and follow-up recommendations. Verbal discharge instructions given a the bedside. Medication warnings reviewed. Patient is in agreement with this plan and has verbalized understanding of return precautions. After careful consideration I feel that that patient can be safely discharged from the emergency department, they were advised to followup with a primary care physician in 2-3 days. Dictation on this chart was performed using voice recognition software and may result in unintended grammatical, spelling, syntax or errors. 07/09/18 04:35 07/09/18 04:36 - Vital Signs Vital signs: Temp Pulse Resp BP Pulse Ox 99.0 F 77 16 123/81 100 07/08/18 18:35 07/08/18 18:35 07/08/18 21:15 07/08/18 21:15 07/08/18 21:15 - Laboratory Result Diagrams: 07/08/18 19:30 07/08/18 19:30 Laboratory results interpreted by me: 07/08/18 07/08/18 19:14 19:30 Lactate Dehydrogenase 261 H Urine Blood MODERATE H Ur Leukocyte Esterase TRACE H Discharge - Discharge Clinical Impression: hypertension, Delivery normal Headache Qualifiers: Headache type: unspecified Headache chronicity pattern: acute headache Intractability: not intractable Qualified Code(s): R51 - Headache Condition: Good Disposition: HOME, SELF-CARE Instructions: High Blood Pressure, Requiring Treatment ([facility]) Additional Instructions: Please follow-up with your [facility] as already scheduled in 48 hours. Follow up with your [id number] hours for further care or return to the ED IMMEDIATELY if symptoms worsen or you have any concerns. If you cannot afford to follow up with your primary care physician a list of low cost clinics have been provided at the end of your discharge papers as well. Most prescribed medications have multiple side effects. The safest thing to do is when filling your prescription speak to your pharmacist regarding possible interactions with your normal home medications and over the counter medications such as Ibuprofen, Tylenol, Benadryl. If you experience any symptoms that cause you discomfort or concern you should discontinue the medication immediately and return to the emergency room or call your primary care physician. Prescriptions: Nifedipine [Procardia Xl 30 mg Tablet] 30 mg PO DAILY #14 tab.[id number] Referrals: LEIGHTON NGUYEN MD [Primary Care Provider] - Follow up as needed
[2018-07-08 20:27] LABS: URIC ACID 5.4 mg/dL (2.5-6.2)
[2018-07-08 21:19] VITALS: BP 123/81
== END 2018-07-08 21:30 | disposition home or self-care (01) ==
LOC: ER 18:17
DX: O13.5 Gestational [pregnancy-induced] hypertension without significant proteinuria, complicating the puerperium (principal); O90.89 Other complications of the puerperium, not elsewhere classified; R51 Headache; Z88.2 Allergy status to sulfonamides
CPT/HCPCS: 99283; 96374; 36415; 83615; 84550; 85025; 80053; 81001; J0360

== ENCOUNTER → 2019-08-19 | Outpatient (CLI) | payer OTHER ==
[2019-08-19 14:08] LABS: ABSOLUTE EOSINOPHILS # (AUTO) 0.1 10^3/uL (0.0-0.6); ABSOLUTE LYMPHOCYTES (AUTO) 1.5 10^3/uL (0.5-4.7); ABSOLUTE MONOCYTES (AUTO) 0.3 10^3/uL (0.1-1.4); BASOPHILS % (AUTO) 0.4 % (0-2); EOSINOPHILS % (AUTO) 3.7 % (0-6); HEMOGLOBIN 13.2 g/dL (12.0-15.5); LYMPHOCYTES % (AUTO) 37.6 % (13-45); MEAN CORPUSCULAR HGB CONC 34.7 g/dL (32.0-36.0); MEAN CORPUSCULAR VOLUME 92 fl (80-97); MONOCYTES % (AUTO) 7.3 % (3-13); PLATELET COUNT 191 10^3/uL (150-450); RED BLOOD COUNT 4.13 10^6/uL (3.72-5.28); TOTAL CELLS COUNTED % (AUTO) 100 %; WHITE BLOOD COUNT 3.9 10^3/uL (4.0-10.5)
[2019-08-19 14:50] LABS: ERYTHROCYTE SEDIMENTATION RATE 15 mm/hr (0-20)
--- NOTE | 2019-08-19 15:35 | RADIOLOGY REPORT (SQ) ---
EXAM DESCRIPTION: LUMBAR SPINE 2 VIEWS COMPLETED DATE/TIME: 08/19/2019 12:59 pm REASON FOR STUDY: LOW BACK PAIN M25.50 PAIN IN UNSPECIFIED JOINT M25.552 PAIN IN LEFT HIP M54.2 C ERVICALGIA COMPARISON: None. NUMBER OF VIEWS: Two views. TECHNIQUE: AP and lateral radiographic images acquired of the lumbar spine. LIMITATIONS: None. FINDINGS: MINERALIZATION: Normal. SEGMENTATION: Transitional S1. ALIGNMENT: Normal. VERTEBRAE: Maintained height. No fracture or worrisome bone lesion. DISCS: Preserved height. No significant osteophytes or end plate irregularity. POSTERIOR ELEMENTS: Pedicles and facets are intact. No pars defect or posterior arch defects. HARDWARE: None in the spine. PARASPINAL SOFT TISSUES: Normal. PELVIS: Intact as visualized. No fractures or worrisome bone lesions. SI joints intact. OTHER: No other significant finding. IMPRESSION: Transitional S1. Otherwise unremarkable. TECHNICAL DOCUMENTATION: JOB ID: [id number] [employer]- All Rights Reserved Reading location - IP/workstation name: [email or web address]
--- NOTE | 2019-08-19 15:36 | RADIOLOGY REPORT (SQ) ---
EXAM DESCRIPTION: HIP LEFT AP/LATERAL COMPLETED DATE/TIME: 08/19/2019 12:59 pm REASON FOR STUDY: PAIN IN LEFT HIP M25.50 PAIN IN UNSPECIFIED JOINT M25.552 PAIN IN LEFT HIP M54.2 CERVICALGIA COMPARISON: None. NUMBER OF VIEWS: Two views. TECHNIQUE: AP pelvis and additional frog-leg view of the left hip. LIMITATIONS: None. FINDINGS: MINERALIZATION: Normal. LEFT HIP: No fracture or dislocation. No worrisome bone lesions. RIGHT HIP: No fracture or dislocation. No worrisome bone lesions. PUBIS AND ISCHIUM: No fracture. PELVIS: No fracture. SACRUM: No fracture or dislocation. No worrisome bone lesions. LOWER LUMBAR SPINE: Transitional S1. SOFT TISSUES: No findings. OTHER: No other significant finding. IMPRESSION: Negative study of the left hip. TECHNICAL DOCUMENTATION: JOB ID: [id number] [employer]- All Rights Reserved Reading location - IP/workstation name: [email or web address]
--- NOTE | 2019-08-19 16:01 | RADIOLOGY REPORT (SQ) ---
EXAM DESCRIPTION: C SP 4 OR 5 VIEWS COMPLETED DATE/TIME: 08/19/2019 12:59 pm REASON FOR STUDY: CERVICALGIA M25.50 PAIN IN UNSPECIFIED JOINT M25.552 PAIN IN LEFT HIP M54.2 CER VICALGIA COMPARISON: None. NUMBER OF VIEWS: Five views. TECHNIQUE: AP, lateral, obliques and odontoid radiographic images acquired of the cervical spine. LIMITATIONS: None. FINDINGS: MINERALIZATION: Normal. ALIGNMENT: Anatomic. VERTEBRAE: The cervical vertebral body heights are preserved. There is no fracture. DISCS: The intervertebral disc space heights are preserved. There is no endplate irregularity or ost eophyte formation. FORAMINA: No osteophytic foraminal stenosis. LATERAL AND POSTERIOR ELEMENTS: Intact. HARDWARE: None in the spine. SOFT TISSUES: No abnormality. OTHER: No other finding. IMPRESSION: No fracture or malalignment of the cervical spine. No osteophytic foraminal stenosis. TECHNICAL DOCUMENTATION: JOB ID: [id number] [employer]- All Rights Reserved Reading location - IP/workstation name: [email or web address]
[2019-08-20 14:20] LABS: ANTINUCLEAR ANTIBODIES Negative (Negative)
== END ==
LOC: OD 12:21
PROVIDERS: ATTEND Nurse Practitioner Family
DX: M54.5 Low back pain (principal); M54.2 Cervicalgia; M25.552 Pain in left hip
CPT/HCPCS: 36415; 72050; 72100; 85025; 85652; 86038; 86140; 86430

== ENCOUNTER → 2019-08-29 | Outpatient (CLI) | payer OTHER | LOC: OD 11:22 | PROVIDERS: ATTEND Nurse Practitioner Family | DX: J02.9 Acute pharyngitis, unspecified (principal) | CPT/HCPCS: 87070 ==